=== PATIENT | female | born 1985 | race Caucasian/White ===

== ENCOUNTER 2017-07-06 09:46 | Inpatient (IN) | payer OTHER, MEDICAID ==
[~2017-07-06] VITALS: Ht 172.7 cm; Wt 68.0 kg
[~2017-07-06 09:46] MED LIST: LEVO500T2 PO; TRAM50TA94 PO
[2017-07-06] MEDS ORDERED: KETOROLAC 30MG/ML VIAL IV STA (14:51)
[2017-07-06] MEDS ORDERED: SODIUM CHLORIDE 0.9% 1,000 ML IV ONE (14:51)
[2017-07-06] MEDS ORDERED: ONDANSETRON HCL 4MG/2ML VIAL IV ONE (15:15)
[2017-07-06 15:40] LABS: INR 1.3; PROTHROMBIN TIME 13.2 sec (9.4-11.6)
[2017-07-06 15:41] LABS: CHLORIDE 98 mEq/L (98-107)
[2017-07-06 15:44] LABS: HEMATOCRIT. 31.9 % (36.0-48.0); HEMOGLOBIN. 9.4 g/dL (12.0-16.0); MEAN CORPUSCULAR HEMOGLOBIN 21.7 pg (28.0-32.0); MEAN CORPUSCULAR VOLUME 73.5 fL (81.0-99.0); MEAN PLATELET VOLUME 7.4 fl (7.4-10.4); PLATELET 387 x1000/uL (130-400); RED BLOOD CELL COUNT 4.33 mill/uL (4.2-5.4); RED CELL DISTRIBUTION WIDTH 19.2 % (11.6-14.6)
[2017-07-06 15:47] LABS: CLARITY URINE TURBID (CLEAR); COLOR URINE ORANGE (YELLOW); KETONES URINE 3+ (NEGATIVE); LEUKOCYTE ESTERASE URINE 3+ (NEGATIVE); NITRITE URINE POSITIVE (NEGATIVE); OCCULT BLOOD URINE 1+ (NEGATIVE); PH URINE 5.5 (4.5-8.0); PROTEIN URINE 2+ (NEGATIVE)
[2017-07-06 15:51] LABS: CARBON DIOXIDE 26 mEq/L (21-32)
[2017-07-06 15:55] LABS: HCG SCREEN NEGATIVE
[2017-07-06] MEDS ORDERED: KETOROLAC 30MG/ML VIAL IV ONE (17:00)
[2017-07-06] MEDS ORDERED: MORPHINE SULFATE 2 MG/ML CPJ (NOT FOR IM USE) IV ONE (17:30)
[2017-07-06] MEDS ORDERED: MORPHINE SULFATE 4 MG/ML CPJ (NOT FOR IM USE) IV NR (18:00)
[2017-07-06] MEDS ORDERED: CEFTRIAXONE 1 G PREMIX 50 ML IV ONE (18:30)
[2017-07-06] MEDS ORDERED: SODIUM CHLORIDE 0.9% 1,000 ML IV SCH (19:59)
[2017-07-06] MEDS ORDERED: ACETAMINOPHEN 325MG TABLET PO PRN (20:00)
[2017-07-06] MEDS ORDERED: MORPHINE SULFATE 4 MG/ML CPJ (NOT FOR IM USE) IV PRN (20:00)
[2017-07-06] MEDS ORDERED: GUAIFENESIN 200MG/10ML SUGAR FREE UDC PO PRN (20:00)
[2017-07-06] MEDS ORDERED: ONDANSETRON HCL 4MG/2ML VIAL IV PRN (20:00)
[2017-07-06] MEDS ORDERED: NA PHOS,M-B/NA PHOS,DI-BA ENEMA 118ML PR PRN (20:00)
[2017-07-06] MEDS ORDERED: CLONIDINE 0.1MG TABLET PO PRN (20:00)
[2017-07-06] MEDS ORDERED: DIPHENHYDRAMINE 50MG/ML VIAL IV PRN (20:00)
[2017-07-06] MEDS ORDERED: DOCUSATE SODIUM 100MG CAPSULE PO PRN (20:00)
[2017-07-06] MEDS ORDERED: ZOLPIDEM TARTRATE 5MG TABLET PO PRN (20:00)
[2017-07-06] MEDS ORDERED: KETOROLAC 15MG/ML VIAL IV PRN (20:00)
[2017-07-06] MEDS ORDERED: IPRATROPIUM/ALBUTEROL 0.5-3(2.5)MG/3ML NEB INH PRN (20:00)
[2017-07-06] MEDS ORDERED: LORAZEPAM 0.5MG TABLET PO PRN (20:00)
[2017-07-06] MEDS ORDERED: MAGNESIUM/ALUMINUM HYDROXIDE/SIMETHICONE 30ML UDC PO PRN (20:00)
[2017-07-06] MEDS ORDERED: KCL 20MEQ/100ML PREMIX 100 ML IV ONE (20:15)
[2017-07-06] MEDS ORDERED: POTASSIUM CHLORIDE 20MEQ TABLET SR PO NR (20:15)
[2017-07-06] MEDS ORDERED: FAMOTIDINE 20MG/2ML VIAL IV SCH (21:00)
[2017-07-07 08:30] VITALS: BP 123/79
[2017-07-07 08:50] VITALS: BP 111/72
[2017-07-07] MEDS ORDERED: SODIUM CHLORIDE 0.9% 1,000 ML IV SCH (09:00)
[2017-07-07] MEDS ORDERED: FAMOTIDINE 20MG/2ML VIAL IV SCH (09:00)
[2017-07-07] MEDS ORDERED: CEFTRIAXONE 1 G PREMIX 50 ML IV SCH ×2 (09:00→20:00)
[2017-07-07] MEDS ORDERED: INFLUENZA VIRUS VACCINE 0.5ML SYR IM ONE (10:45)
[2017-07-07] MEDS ORDERED: KCL 20MEQ/100ML PREMIX 100 ML IV NR (11:00)
[2017-07-07 12:00] VITALS: BP 111/72
[2017-07-07] MEDS ORDERED: PROT40 PO (15:07)
[2017-07-07] MEDS ORDERED: SUCR1TAB30 PO (15:10)
[2017-07-07 15:11] VITALS: BP 111/72
[2017-07-07 16:00] VITALS: BP 108/72
[2017-07-07] MEDS ORDERED: ZOLPIDEM TARTRATE 5MG TABLET PO PRN (19:00)
[2017-07-07] MEDS ORDERED: CEFTRIAXONE 1,000 MG in DEXTROSE 5% WATER 50 ML IV SCH (20:00)
== END 2017-07-07 16:05 | disposition home or self-care (01) | DRG 282 ==
LOC: ER 10:40 → 6EST 18:29 → ENRESERV 07-07 07:19 → ER 07-07 08:34
PROVIDERS: ADMIT Internal Medicine; ATTEND Internal Medicine
DX: K85.10 Biliary acute pancreatitis without necrosis or infection (principal); E44.0 Moderate protein-calorie malnutrition; E87.1 Hypo-osmolality and hyponatremia; D63.8 Anemia in other chronic diseases classified elsewhere; K86.1 Other chronic pancreatitis; I10 Essential (primary) hypertension; E87.6 Hypokalemia; N39.0 Urinary tract infection, site not specified; Z82.49 Family history of ischemic heart disease and other diseases of the circulatory system; Z90.49 Acquired absence of other specified parts of digestive tract; Z79.899 Other long term (current) drug therapy; Z68.22 Body mass index [BMI] 22.0-22.9, adult
CPT/HCPCS: 36415; 76700; 80053; 80076; 81001; 82150; 83036; 83690; 84703; 85025; 85610; 90686; 96365; 96375; 99285; J0696; J1885; J2270; J2405; J3480; J3490; J7030; J7060

== ENCOUNTER 2018-04-18 11:33 | Inpatient (IN) | payer OTHER, MEDICAID ==
[~2018-04-18] VITALS: Ht 172.7 cm; Wt 64.9 kg
[~2018-04-18 11:33] MED LIST changes: +PROT40 PO; +SUCR1TAB30 PO
[2018-04-18] MEDS ORDERED: SODIUM CHLORIDE 0.9% 1,000 ML IV ONE (12:30)
[2018-04-18] MEDS ORDERED: MORPHINE SULFATE 4 MG/ML CPJ (NOT FOR IM USE) IV STA (12:30)
[2018-04-18] MEDS ORDERED: ONDANSETRON HCL 4MG/2ML INJ IV STA (12:30)
[2018-04-18] MEDS ORDERED: FAMOTIDINE 20MG/2ML VIAL IV STA (12:30)
[2018-04-18 13:11] LABS: HEMATOCRIT. 35.8 % (36.0-48.0); HEMOGLOBIN. 12.3 g/dL (12.0-16.0); MEAN CORPUSCULAR HEMOGLOBIN 36.9 pg (28.0-32.0); MEAN CORPUSCULAR VOLUME 107.4 fL (81.0-99.0); MEAN PLATELET VOLUME 7.6 fl (7.4-10.4); PLATELET 197 x1000/uL (130-400); RED BLOOD CELL COUNT 3.34 mill/uL (4.2-5.4); RED CELL DISTRIBUTION WIDTH 16.6 % (11.6-14.6)
[2018-04-18 13:14] LABS: CHLORIDE 93 mEq/L (98-107)
[2018-04-18 13:17] LABS: HCG SCREEN NEGATIVE
[2018-04-18 13:24] LABS: ETHANOL BLOOD 21 mg/dL
[2018-04-18 13:25] LABS: CLARITY URINE CLOUDY (CLEAR); KETONES URINE 2+ (NEGATIVE); LEUKOCYTE ESTERASE URINE 3+ (NEGATIVE); NITRITE URINE POSITIVE (NEGATIVE); OCCULT BLOOD URINE NEGATIVE (NEGATIVE); PROTEIN URINE 1+ (NEGATIVE); SPECIFIC GRAVITY URINE 1.023 (1.005-1.030); UROBILINOGEN URINE >=8.0 E.U./dL (0.2-1.0)
[2018-04-18 13:27] LABS: COLOR URINE ORANGE (YELLOW)
[2018-04-18 13:33] LABS: INR 1.7; PROTHROMBIN TIME 17.1 sec (9.1-11.1)
[2018-04-18 13:36] LABS: PLATELET ESTIMATE NORMAL
[2018-04-18] MEDS ORDERED: IOHEXOL-300 100 ML BOTTLE ONE (14:00)
[2018-04-18] MEDS ORDERED: CEFTRIAXONE 1 G PREMIX 50 ML IV ONE (15:15)
[2018-04-18 21:46] VITALS: BP 112/77
[2018-04-18] MEDS ORDERED: INFLUENZA VIRUS VACCINE(AFLURIA) 0.5ML SYR IM ONE (22:15)
[2018-04-18] MEDS ORDERED: ONDANSETRON HCL 4MG/2ML INJ IV PRN (23:15)
[2018-04-18] MEDS ORDERED: ACETAMINOPHEN 325MG TABLET PO PRN (23:15)
[2018-04-19] VITALS: BP 96/63
[2018-04-19] MEDS: MORPHINE SULFATE 4 MG/ML CPJ (NOT FOR IM USE) IV PRN ×5 (00:03→22:06)
[2018-04-19 04:00] VITALS: BP 102/72
[2018-04-19 07:15] LABS: CHLORIDE 98 mEq/L (98-107)
[2018-04-19 07:17] LABS: BASOPHILS % 0.6 % (0.0-2.0); EOSINOPHILS % 1.6 % (0.0-5.0); HEMATOCRIT. 30.6 % (36.0-48.0); HEMOGLOBIN. 10.4 g/dL (12.0-16.0); MEAN CORPUSCULAR HEMOGLOBIN 36.9 pg (28.0-32.0); MEAN CORPUSCULAR VOLUME 109.1 fL (81.0-99.0); MEAN PLATELET VOLUME 7.9 fl (7.4-10.4); MONOCYTES % 5.9 % (2.0-8.0); NEUTROPHILS % 78.9 % (40.0-76.0); PLATELET 157 x1000/uL (130-400); RED BLOOD CELL COUNT 2.81 mill/uL (4.2-5.4); RED CELL DISTRIBUTION WIDTH 16.5 % (11.6-14.6)
[2018-04-19 07:38] LABS: HEPATITIS B SURFACE ANTIGEN NEGATIVE
[2018-04-19 08:00] VITALS: BP 110/69
[2018-04-19 08:06] LABS: HEPATITIS B CORE AB IGM NEGATIVE
[2018-04-19 08:08] LABS: HEPATITIS A AB IGM NEGATIVE (NEGATIVE)
[2018-04-19] MEDS ORDERED: POTASSIUM CHLORIDE 20MEQ TABLET SR PO SCH (11:45)
[2018-04-19 12:00] VITALS: BP 102/74
[2018-04-19 16:00] VITALS: BP 113/74
[2018-04-19] MEDS ORDERED: CEFTRIAXONE 1 G PREMIX 50 ML IV SCH (16:00)
[2018-04-19] MEDS: PANTOPRAZOLE SODIUM 40 MG/VIAL IV SCH (17:16)
[2018-04-19] MEDS: DEXT 5%/0.45% NACL 1000ML 1,000 ML IV SCH (19:57)
[2018-04-19 20:00] VITALS: BP 108/76
[2018-04-20] VITALS: BP 109/73
[2018-04-20 04:00] VITALS: BP 99/70
[2018-04-20 07:38] LABS: BASOPHILS % 0.3 % (0.0-2.0); EOSINOPHILS % 1.8 % (0.0-5.0); HEMATOCRIT. 31.7 % (36.0-48.0); HEMOGLOBIN. 10.7 g/dL (12.0-16.0); LYMPHOCYTES % 10.1 % (20.0-50.0); MEAN CORPUSCULAR VOLUME 109.2 fL (81.0-99.0); MEAN PLATELET VOLUME 7.7 fl (7.4-10.4); MONOCYTES % 6.1 % (2.0-8.0); NEUTROPHILS % 81.7 % (40.0-76.0); PLATELET 158 x1000/uL (130-400); RED CELL DISTRIBUTION WIDTH 16.1 % (11.6-14.6)
[2018-04-20 08:00] VITALS: BP 110/76
[2018-04-20] MEDS: DEXT 5%/0.45% NACL 1000ML 1,000 ML IV SCH (08:21)
[2018-04-20] MEDS: PANTOPRAZOLE SODIUM 40 MG/VIAL IV SCH (08:21)
[2018-04-20] MEDS: MORPHINE SULFATE 4 MG/ML CPJ (NOT FOR IM USE) IV PRN ×2 (08:53→13:41)
[2018-04-20 11:02] LABS: CHLORIDE 95 mEq/L (98-107)
[2018-04-20 12:00] VITALS: BP 109/82
[2018-04-20 15:24] VITALS: BP 110/84
== END 2018-04-20 16:05 | disposition home or self-care (01) | DRG 720 ==
LOC: ER 13:33 → 6EST 15:44 → EDBEDREQ 15:50 → ENRESERV 19:54 → 6EST 04-19 00:03
PROVIDERS: ADMIT Internal Medicine; ATTEND Internal Medicine
DX: A41.9 Sepsis, unspecified organism (principal); K76.6 Portal hypertension; E87.8 Other disorders of electrolyte and fluid balance, not elsewhere classified; K29.21 Alcoholic gastritis with bleeding; E44.0 Moderate protein-calorie malnutrition; E87.1 Hypo-osmolality and hyponatremia; K80.10 Calculus of gallbladder with chronic cholecystitis without obstruction; K86.1 Other chronic pancreatitis; N39.0 Urinary tract infection, site not specified; I10 Essential (primary) hypertension; R16.1 Splenomegaly, not elsewhere classified; D53.9 Nutritional anemia, unspecified; S00.83XA Contusion of other part of head, initial encounter; S40.022A Contusion of left upper arm, initial encounter; K59.00 Constipation, unspecified; K70.30 Alcoholic cirrhosis of liver without ascites; Y90.1 Blood alcohol level of 20-39 mg/100 ml; Z68.21 Body mass index [BMI] 21.0-21.9, adult; Z82.49 Family history of ischemic heart disease and other diseases of the circulatory system; Z90.49 Acquired absence of other specified parts of digestive tract; Z79.899 Other long term (current) drug therapy; W10.8XXA Fall (on) (from) other stairs and steps, initial encounter; Y93.89 Activity, other specified; Y92.89 Other specified places as the place of occurrence of the external cause; Y99.8 Other external cause status
CPT/HCPCS: 36415; 71045; 74177; 76705; 78227; 80048; 80076; 81025; 84703; 86705; 86709; 86803; 87077; 87186; 87340; 90686; 93005; 96361; 96365; 96375; 99285; A9537; C9113; G0482; J0696; J2270; J2405; J3490; J7030; Q9967

== ENCOUNTER 2018-06-25 22:33 | Inpatient (IN) | payer MEDICAID, OTHER ==
[~2018-06-25] VITALS: Ht 172.7 cm; Wt 69.9 kg
[2018-06-26] MEDS ORDERED: ONDANSETRON HCL 4MG/2ML INJ IV STA (00:15)
[2018-06-26] MEDS ORDERED: PANTOPRAZOLE SODIUM 40 MG/VIAL IV STA (00:15)
[2018-06-26] MEDS ORDERED: MORPHINE SULFATE 4 MG/ML CPJ (NOT FOR IM USE) IV STA (00:15)
[2018-06-26 01:21] LABS: BASOPHILS % 0.8 % (0.0-2.0); EOSINOPHILS % 0.3 % (0.0-5.0); HEMATOCRIT. 26.4 % (36.0-48.0); HEMOGLOBIN. 8.4 g/dL (12.0-16.0); LYMPHOCYTES % 14.1 % (20.0-50.0); MEAN CORPUSCULAR HEMOGLOBIN 35.5 pg (28.0-32.0); MEAN PLATELET VOLUME 7.9 fl (7.4-10.4); MONOCYTES % 6.1 % (2.0-8.0); NEUTROPHILS % 78.7 % (40.0-76.0); PLATELET 213 x1000/uL (130-400); RED BLOOD CELL COUNT 2.38 mill/uL (4.2-5.4); RED CELL DISTRIBUTION WIDTH 25.2 % (11.6-14.6)
[2018-06-26] MEDS: MORPHINE SULFATE 10 MG/ML CPJ IV NR ×2 (01:24→02:28)
[2018-06-26 01:27] LABS: CHLORIDE 103 mEq/L (98-107)
[2018-06-26 01:30] LABS: PARTIAL THROMBOPLASTIN TIME 37.8 sec (23.4-31.0); PROTHROMBIN TIME 20.1 sec (9.1-11.1)
[2018-06-26 01:36] LABS: ETHANOL BLOOD < 10 mg/dL
[2018-06-26] MEDS ORDERED: FENTANYL CITRATE/PF 50MCG/ML 2ML VIAL IV NR (02:45)
[2018-06-26 02:47] LABS: CLARITY URINE TURBID (CLEAR); COLOR URINE ORANGE (YELLOW); KETONES URINE NEGATIVE (NEGATIVE); LEUKOCYTE ESTERASE URINE 2+ (NEGATIVE); NITRITE URINE POSITIVE (NEGATIVE); OCCULT BLOOD URINE NEGATIVE (NEGATIVE); PH URINE 5.5 (4.5-8.0); PROTEIN URINE TRACE (NEGATIVE); SPECIFIC GRAVITY URINE 1.026 (1.005-1.030)
[2018-06-26 03:09] LABS: PLATELET ESTIMATE NORMAL
[2018-06-26] MEDS ORDERED: IOHEXOL-300 100 ML BOTTLE ONE (03:24)
[2018-06-26 03:25] LABS: *AMPHETAMINES SCREEN URINE NEGATIVE (NEGATIVE); *BARBITURATES SCREEN URINE NEGATIVE (NEGATIVE); *BENZODIAZEPINES SCREEN URINE NEGATIVE (NEGATIVE); *COCAINE SCREEN URINE NEGATIVE (NEGATIVE)
[2018-06-26 03:26] LABS: CANNABINOID URINE SCREEN NEGATIVE (NEGATIVE); METHADONE URINE SCREEN NEGATIVE (NEGATIVE); OPIATES URINE SCREEN NEGATIVE (NEGATIVE); PHENCYCLIDINE URINE SCREEN NEGATIVE (NEGATIVE)
[2018-06-26 03:43] LABS: HEPATITIS B SURFACE ANTIGEN NEGATIVE
[2018-06-26 04:13] LABS: HEPATITIS A AB IGM NEGATIVE (NEGATIVE)
[2018-06-26] MEDS ORDERED: MORPHINE SULFATE 10 MG/ML CPJ IV ONE (06:15)
[2018-06-26 09:20] VITALS: BP 85/57
[2018-06-26] MEDS ORDERED: IPRATROPIUM/ALBUTEROL 0.5-3(2.5)MG/3ML NEB INH PRN (10:30)
[2018-06-26] MEDS ORDERED: MAGNESIUM/ALUMINUM HYDROXIDE/SIMETHICONE 30ML UDC PO PRN (10:30)
[2018-06-26] MEDS ORDERED: ZOLPIDEM TARTRATE 5MG TABLET PO PRN (10:30)
[2018-06-26] MEDS ORDERED: DOCUSATE SODIUM 100MG CAPSULE PO PRN (10:30)
[2018-06-26] MEDS ORDERED: NA PHOS,M-B/NA PHOS,DI-BA ENEMA 118ML PR PRN (10:30)
[2018-06-26] MEDS ORDERED: CLONIDINE 0.1MG TABLET PO PRN (10:30)
[2018-06-26] MEDS ORDERED: ONDANSETRON HCL 4MG/2ML INJ IV PRN (10:30)
[2018-06-26] MEDS ORDERED: GUAIFENESIN 200MG/10ML SUGAR FREE UDC PO PRN (10:30)
[2018-06-26 11:56] VITALS: BP 85/57
[2018-06-26] MEDS: CEFTRIAXONE 1 G PREMIX 50 ML IV SCH (12:23)
[2018-06-26] MEDS: LEVOFLOXACIN 500MG PREMIX 100 ML IV SCH (12:23)
[2018-06-26] MEDS ORDERED: MVI, ADULT NO.1 10 ML, FOLIC ACID 1 MG, THIAMINE HCL 100 MG in SODIUM CHLORIDE 0.9% 1,0... IV SCH ×4 (13:00)
[2018-06-26 16:00] VITALS: BP 90/52
[2018-06-26] MEDS: KETOROLAC 30MG/ML VIAL IV PRN (18:37)
[2018-06-26 20:00] VITALS: BP 92/56
[2018-06-26] MEDS: FAMOTIDINE 20MG TABLET PO SCH (20:15)
[2018-06-26] MEDS: ACETAMINOPHEN 325MG TABLET PO PRN (22:58)
[2018-06-26 23:49] VITALS: BP 73/37
[2018-06-27] MEDS: KETOROLAC 30MG/ML VIAL IV PRN ×2 (01:06→06:38)
[2018-06-27 02:00] VITALS: BP 127/55
[2018-06-27] MEDS: ACETAMINOPHEN 325MG TABLET PO PRN (03:36)
[2018-06-27 04:00] VITALS: BP 91/38
[2018-06-27 08:00] VITALS: BP 81/41
[2018-06-27] MEDS: FAMOTIDINE 20MG TABLET PO SCH (08:15)
[2018-06-27] MEDS: CEFTRIAXONE 1 G PREMIX 50 ML IV SCH (08:17)
[2018-06-27 09:59] LABS: CHLORIDE 105 mEq/L (98-107)
[2018-06-27] MEDS: LEVOFLOXACIN 500MG PREMIX 100 ML IV SCH (11:00)
[2018-06-27 12:00] VITALS: BP_SYST 83; BP_DIAS 45; BP_DIAS 55
[2018-06-27] MEDS ORDERED: THIA100T13 MT (15:39)
[2018-06-27] MEDS ORDERED: MULT-1146 MT (15:39)
[2018-06-27] MEDS ORDERED: folate (15:48)
[2018-06-27 16:13] VITALS: BP 88/62
== END 2018-06-27 18:25 | disposition home or self-care (01) | DRG 720 ==
LOC: ER 22:33 → 7WST 06-26 04:51 → EDBEDREQ 06-26 04:54 → ENRESERV 06-26 07:01
PROVIDERS: ADMIT Internal Medicine; ATTEND Internal Medicine
DX: A41.9 Sepsis, unspecified organism (principal); E43 Unspecified severe protein-calorie malnutrition; D68.9 Coagulation defect, unspecified; R18.8 Other ascites; K74.60 Unspecified cirrhosis of liver; E86.0 Dehydration; F10.10 Alcohol abuse, uncomplicated; K29.70 Gastritis, unspecified, without bleeding; D64.9 Anemia, unspecified; N39.0 Urinary tract infection, site not specified; Z82.49 Family history of ischemic heart disease and other diseases of the circulatory system; Z90.49 Acquired absence of other specified parts of digestive tract
CPT/HCPCS: 36415; 71045; 74177; 80305; 81025; 83036; 83605; 83880; 84484; 86705; 86709; 86803; 86850; 86900; 87340; 93005; 96374; 96375; 99285; C9113; G0482; J0696; J1885; J1956; J2270; J2405; J3010; J3411; J3490; J7030; J7050; Q9967